=== PATIENT | female | born 1955 | race Two or more races ===

== ENCOUNTER → 2025-03-02 | Outpatient (REF) | payer MEDICARE, OTHER | LOC: M SFHCDERM 18:11 | PROVIDERS: ATTEND Physician Assistant | DX: C44.511 Basal cell carcinoma of skin of breast (principal); C44.311 Basal cell carcinoma of skin of nose ==

== ENCOUNTER → 2025-04-13 | Outpatient (REF) | payer MEDICARE, OTHER | LOC: M SFHCDERM 17:57 | PROVIDERS: ATTEND Physician Assistant | DX: C44.519 Basal cell carcinoma of skin of other part of trunk (principal) ==